=== PATIENT | female | born 1945 | race American Indian/Alaskan Native ===

== ENCOUNTER 2016-08-31 07:43 | Day surgery (SDC) | payer MEDICARE ==
[2012-10-09 09:18] VITALS: BMI 31.6
[2016-08-31] MEDS ORDERED: Propofol 10 mg/ml Inj (20 ML) ONE (09:27)
[2016-08-31] MEDS ORDERED: Lactated Ringer's 1,000 ML IV SCH (10:30)
[2016-08-31 11:19] VITALS: PULSE 63
[2016-08-31 12:46] VITALS: BP 108/66; RESP 19; TEMP 97.6; O2SAT 96
== END 2016-08-31 12:15 | disposition home or self-care (01) ==
LOC: ENDO 07:43
PROVIDERS: ATTEND Specialist
DX: K25.9 Gastric ulcer, unspecified as acute or chronic, without hemorrhage or perforation (principal); K44.9 Diaphragmatic hernia without obstruction or gangrene; K57.30 Diverticulosis of large intestine without perforation or abscess without bleeding; K64.8 Other hemorrhoids; K31.9 Disease of stomach and duodenum, unspecified; E11.9 Type 2 diabetes mellitus without complications; I10 Essential (primary) hypertension; E78.5 Hyperlipidemia, unspecified
CPT/HCPCS: 43239; 45378; 82948; 88305; 88312; 88342; J2704; J7120